=== PATIENT | male | born 1975 | race Caucasian/White ===

== ENCOUNTER 2018-12-11 17:13 | Emergency (ER) | payer OTHER ==
[2018-12-11 17:48] VITALS: BP 127/72
[2018-12-11] MEDS ORDERED: Fluorescein Sodium TOPICAL* 1 MG TEST STRIP OPHTHALMIC ONE (18:01)
[2018-12-11] MEDS ORDERED: Tetracaine 0.5% OPTH.SOL 4 ML* 1 DROP BTL LEFT EYE ONE (18:05)
--- NOTE | 2018-12-11 18:24 | UC ---
Eye Complaint HPI - HPI Summary HPI Summary: 43-year-old male complains of 2-3 day history of left eye irritation and redness. Patient is a contact lens wearer. States yesterday he removed his old pair of lenses and put in a new pair. Throughout the day today the redness and irritation worsened. He developed photophobia and tearing. Denies fever, chills, URI symptoms, injury, blurred or double vision, or purulent discharge. - History of Current Complaint Chief Complaint: UCEye Stated Complaint: LEFT EYE ISSUE Time Seen by Provider: 12/11/18 17:57 Hx Obtained From: Patient Pain Intensity: 6 - Allergies/Home Medications Allergies/Adverse Reactions: Allergies Allergy/AdvReac Type Severity Reaction Status Date / Time Penicillins Allergy family hx Verified 12/11/18 17:42 of onions Allergy Anaphylatic Uncoded 03/31/18 09:45 Shock PMH/Surg Hx/FS Hx/Imm Hx Previously Healthy: Yes - Denies significant PMH - Surgical History Surgical History: None - Family History Known Family History: Positive: Cardiac Disease - Social History Occupation: Employed Full-time Lives: With Family Alcohol Use: Weekly Substance Use Type: Marijuana Substance Use Comment - Amount & Last Used: yesterday Smoking Status (MU): Former Smoker Have You Smoked in the Last Year: No When Did the Patient Quit Smoking/Using Tobacco: age 15 yo Review of Systems All Other Systems Reviewed And Are Negative: Yes Constitutional: Negative: Fever, Chills Eyes: Positive: Drainage, Eye Redness, Photophobia. Negative: Blurred Vision, Diplopia ENT: Positive: Negative Respiratory: Positive: Negative Cardiovascular: Positive: Negative Gastrointestinal: Positive: Negative Genitourinary: Positive: Negative Musculoskeletal: Positive: Negative Neurological: Positive: Negative Is Patient Immunocompromised?: No Physical Exam - Summary Physical Exam Summary: GENERAL APPEARANCE: Well developed, well nourished, alert and cooperative, and appears to be in no acute distress. EYES: PERRL, EOM intact. Vision is grossly intact. Left conjunctival erythema with tearing. Tetracaine drops and fluorsceine instilled into the left eye and examined under magnification using a Wood's lamp. No corneal corneal defects, stain uptake, or foreign bodies noted. Upper and lower lids were everted as part of the exam. EARS: External auditory canals and tympanic membranes clear, hearing grossly intact. NOSE: No nasal discharge. THROAT: Pharynx normal. No tonsilar inflammation, swelling, exudate, or lesions. Uvula midline. Oral cavity normal. Teeth and gingiva in good general condition. NECK: Neck supple, non-tender without lymphadenopathy. CARDIAC: Normal S1 and S2. No S3, S4 or murmurs. Rhythm is regular. There is no peripheral edema, cyanosis or pallor. Extremities are warm and well perfused. Capillary refill is less than 2 seconds. Peripheral pulses intact. LUNGS: Clear to auscultation without rales, rhonchi, wheezing or diminished breath sounds. ABDOMEN: Positive bowel sounds. Soft, nondistended, nontender. No guarding or rebound. No masses or hepatosplenomegally. MUSKULOSKELETAL: ROM intact to all extremities. No joint erythema or tenderness. Normal muscular development. Normal gait. SKIN: Skin normal color, texture and turgor with no lesions or eruptions. Triage Information Reviewed: Yes Vital Signs: Initial Vital Signs Temp 99.2 F 12/11/18 17:44 Pulse 70 12/11/18 17:44 Resp 22 12/11/18 17:44 BP 127/72 12/11/18 17:44 Pulse Ox 97 12/11/18 17:44 Vital Signs Reviewed: Yes Eye Complaint Course/Dx - Course Course Of Treatment: 43-year-old male complains of 2-3 day history of left eye irritation and redness. Patient is a contact lens wearer. States yesterday he removed his old pair of lenses and put in a new pair. Throughout the day today the redness and irritation worsened. He developed photophobia and tearing. Denies fever, chills, URI symptoms, injury, blurred or double vision, or purulent discharge. Afebrile. Vital signs stable. Exam revealed conjunctival erythema with tearing of the left eye. PERRL, EOM intact. Vision is grossly intact. Tetracaine drops and fluorsceine instilled into the left eye and examined under magnification using a Wood's lamp. No corneal corneal defects, stain uptake, or foreign bodies noted. Remainder of exam was unremarkable. Will plan to treat for a left bacterial conjunctivitis although I did discuss with the patient that with his symptoms of eye pain and photophobia I cannot fully rule out the possibility of keratitis despite not finding any corneal defects. He is to start ciprofloxacin ophthalmic drops 2 drops into the left eye every 2 hours while awake for 2 days then 2 drops into the left eye every 4 hours while awake for the next 5 days. Patient was instructed not to wear contacts until treatment is completed. He is to follow-up with ophthalmology in one to 2 days especially if symptoms are not improving. Anticipatory guidance and warning symptoms were reviewed with the patient. Verbalizes understanding and agrees with plan of care. - Differential Dx/Diagnosis Differential Diagnosis/HQI/PQRI: Conjunctivitis, Corneal Abrasion, Keratitis Provider Diagnosis: Conjunctivitis, left eye Discharge - Sign-Out/Discharge Documenting (check all that apply): Patient Departure All imaging exams completed and their final reports reviewed: No Studies - Discharge Plan Condition: Stable Disposition: HOME Prescriptions: Ciprofloxacin 0.3% OPTH.SHIRLEY* [Cipro 0.3% Opth*] 2 drop LEFT EYE Q2H 7 Days #1 btl Patient Education Materials: Conjunctivitis (ED) Referrals: Loly Jimenez PA [Primary Care Provider] - Ezra Campoverde MD [Medical Doctor] - 2 Days Additional Instructions: Your eye exam showed no defects of the cornea therefore we will treat for a bacterial conjunctivitis however with your symptoms I cannot fully rule out the possibility of a more serious condition called keratitis. Start ciprofloxacin ophthalmic drops. Instilled 2 drops into the left eye every 2 hours while awake for the first 2 days and then 2 drops into the left eye every 4 hours while awake for the next 5 days. Do not wear your contacts until you have completed the treatment. Throw out the old pair and use a new pair once you have completed you treatment. To avoid reinfection or spreading infection: * Use washcloths and towels once then launder. * Do not share washcloths or towels with others. * Change your pillow case each morning until you have finished treatment. Follow up with opthalmology in 1-2 days especially if symptoms are not improving. Call for an appointment. Seek immediate medical attention in the emergency room if you develop fever greater than 100.5 F, have pain or swelling of the eye, visual disturbances, loss of vision, or any worsening of symptoms. - Billing Disposition and Condition Condition: STABLE Disposition: Home
[2018-12-11] MEDS ORDERED: Tetracaine 0.5% OPTH.SOL 4 ML* 1 DROP BTL LEFT EYE SCH (18:30)
== END 2018-12-11 18:40 | disposition home or self-care (01) ==
LOC: UCCORT 17:13
DX: H57.89 Other specified disorders of eye and adnexa (principal); H10.9 Unspecified conjunctivitis; Z88.0 Allergy status to penicillin; Z87.891 Personal history of nicotine dependence
CPT/HCPCS: 99212; A9270-GY; G0463

== ENCOUNTER 2019-07-11 10:34 | Emergency (ER) | payer SELFPAY ==
--- NOTE | 2019-07-11 10:45 | UC ---
FLU HPI - HPI Summary HPI Summary: 43 y/o male presents to the urgent care c/o nasal congestion, runny nose, headache, sore throat, body aches and fever for the past 2 days. He has taking theraflu and ibuprofen prn to alleviate symptoms. Pt thinks he has been exposed to influenza in his house since his kids are sick. Pt states pain is 6/10 body aches and VERDE. He has Hx os asthma and last night he used his inhalers for the cough. Pt denies dizziness, SOB, chest pain,abdominal pain, N/V/d, neck pain, rash. - History of Current Complaint Stated Complaint: COUGH,BODY ACHES, FEVER,FATIGUE Time Seen by Provider: 07/11/19 10:42 Hx Obtained From: Patient Onset/Duration: Gradual Onset, Lasting Days - 2 days, Still Present, Worse Since - today Severity Currently: Mild Severity Initially: Moderate Pain Intensity: 6 Pain Scale Used: 0-10 Numeric Associated Signs & Symptoms: Positive: Fever, T Max - 100.9F, Myalgia, Cough - dry, Sore Throat, Nasal Congestion, Headache. Negative: Vomiting, Diarrhea Related Hx: Possible Flu/Infectious Exposure - Risk Factors Influenza Risk Factors: Negative - Allergy/Home Medications Allergies/Adverse Reactions: Allergies Allergy/AdvReac Type Severity Reaction Status Date / Time Penicillins Allergy family hx Verified 07/11/19 10:43 of onions Allergy Anaphylatic Uncoded 07/11/19 10:43 Shock Home Medications: Home Medications Oseltamivir CAP* [Tamiflu CAP*] 75 mg PO BID #10 cap 07/11/19 [Rx] PMH/Surg Hx/FS Hx/Imm Hx Previously Healthy: Yes Respiratory History: Asthma - Surgical History Surgical History: None - Family History Known Family History: Positive: Cardiac Disease, Respiratory Disease - asthma - Social History Occupation: Employed Full-time Lives: With Family Alcohol Use: Weekly Substance Use Type: Marijuana Substance Use Comment - Amount & Last Used: yesterday Smoking Status (MU): Former Smoker Have You Smoked in the Last Year: No When Did the Patient Quit Smoking/Using Tobacco: age 15 yo Review of Systems All Other Systems Reviewed And Are Negative: Yes Constitutional: Positive: Fever, Chills, Fatigue, Other - body aches Skin: Positive: Negative Eyes: Positive: Negative ENT: Positive: Sore Throat, Nasal Discharge - clear, Sinus Congestion, Sinus Pain/Tenderness, Other - PND Respiratory: Positive: Cough - dry Cardiovascular: Positive: Negative Gastrointestinal: Positive: Negative Genitourinary: Positive: Negative Motor: Positive: Negative Neurovascular: Positive: Negative Musculoskeletal: Positive: Myalgia Neurological/Mental Status: Positive: Headache Psychological: Positive: Negative Is Patient Immunocompromised?: No Physical Exam - Summary Physical Exam Summary: VITAL SIGNS: Reviewed. GENERAL: Patient is a well developed and nourished male who is sitting comfortably in the examining table. Patient is not in any acute respiratory distress. HEAD AND FACE: No signs of trauma. No ecchymosis, hematomas or skull depressions. No sinus tenderness. EYES: PERRLA, EOMI x 2, No injected conjunctiva, no nystagmus. No photophobia. EARS: Hearing grossly intact. Ear canals and tympanic membranes are within normal limits. MOUTH: Positive pharynx with mild erythema, no exudates, No B/L tonsillar enlargement , no exudate. Uvula in midline. edematous nasal mucosa w/ clear nasal discharge, clear PND NECK: Supple, trachea is midline, Positive anterior cervical lymphadenopathy, no JVD, no carotid bruit, no c-spine tenderness, neck with full ROM. No meningeal signs, no Kernig's or brudzinskis signs. CHEST: Symmetric, no tenderness at palpation LUNGS: Clear to auscultation bilaterally. No wheezing or crackles. CVS: Regular rate and rhythm, S1 and S2 present, no murmurs or gallops appreciated. ABDOMEN: Soft, non-tender. No signs of distention. No rebound no guarding, and no masses palpated. Bowel sounds are normal. EXTREMITIES: FROM in all major joints, no edema, no cyanosis or clubbing. NEURO: Alert and oriented x 3. No acute neurological deficits. Pt follows commands. SKIN: Dry and warm Triage Information Reviewed: Yes Flu Course/Dx - Course Course Of Treatment: 43 y/o male presents to the urgent care c/o nasal congestion, runny nose, headache, sore throat, body aches and fever for the past 2 days. He has taking theraflu and ibuprofen prn to alleviate symptoms. Pt thinks he has been exposed to influenza in his house since his kids are sick. Pt states pain is 6/10 body aches and VERDE. He has Hx os asthma and last night he used his inhalers for the cough. Pt denies dizziness, SOB, chest pain,abdominal pain, N/V/d, neck pain, rash. Hx obtained. and medications reviewed.Pt febrile with URI on examination. Pt given Ibuprofen PO at the clinic to alleviate symptoms by nurse. Pt tolerated well medication and felt better. Influenza A&B ordered: result: Influenza B positive.Pt Rx Tamiflu PO to alleviate symptoms. Advised on hand washing and wearing a mask to avoid spreading. Pt advised to rest, increase fluid intake, eat well and avoid strenuous exercise. If symptoms do not improve or worsen advised to return to the urgent care or f/u with her PCP for further evaluation and treatment. Pt understood and agreed w/ plan of care. - Differential Dx/Diagnosis Differential Diagnosis/HQI/PQRI: Bronchitis, Influenza, Pneumonia, Upper Respiratory Infection Provider Diagnosis: Influenza A, Fever Discharge ED - Sign-Out/Discharge Documenting (check all that apply): Patient Departure - D/C home All imaging exams completed and their final reports reviewed: No Studies - Discharge Plan Condition: Stable Disposition: HOME Prescriptions: Oseltamivir CAP* [Tamiflu CAP*] 75 mg PO BID #10 cap Patient Education Materials: Influenza (ED) Forms: *Work Release Referrals: Loly Jimenez PA [Primary Care Provider] - 3 Days Additional Instructions: 1- Please take the full course of the antiviral to avoid resistance. Encourage hand washing and wear a mask to avoid spreading. 2-Please continue taking Ibuprofen alternating w/ Tylenol PO q6-8hrs prn as instructed after meals to alleviate fever, and sore throat. Increase fluid intake, eat well, rest and avoid strenuous exercise 3- Continue using your albuterol inhaler w/ chamber to alleviate bronchospasm or if you develop wheezing. 4-If symptoms do not improve or worsen please return to the urgent care or f/u with your PCP in 2-3 days for further evaluation and treatment. - Billing Disposition and Condition Condition: STABLE Disposition: Home
[2019-07-11 10:46] VITALS: BP 112/73
[2019-07-11 10:53] LABS: Influenza A Molecular POSITIVE (Negative)
[2019-07-11] MEDS ORDERED: Ibuprofen TAB* 400 MG PO ONE (10:56)
== END 2019-07-11 11:14 | disposition home or self-care (01) ==
LOC: UCCORT 10:34
DX: J10.1 Influenza due to other identified influenza virus with other respiratory manifestations (principal); R50.9 Fever, unspecified; J45.909 Unspecified asthma, uncomplicated; Z88.0 Allergy status to penicillin; Z91.018 Allergy to other foods; Z87.891 Personal history of nicotine dependence
CPT/HCPCS: 99212; A9270-GY; G0463

== ENCOUNTER 2019-07-17 11:26 | Emergency (ER) | payer SELFPAY ==
[2019-07-17 11:41] VITALS: BP 117/79
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
== END 2019-07-17 12:12 | disposition home or self-care (01) ==
LOC: UCCORT 11:26
DX: R04.2 Hemoptysis (principal); R91.8 Other nonspecific abnormal finding of lung field; F90.9 Attention-deficit hyperactivity disorder, unspecified type; Z88.0 Allergy status to penicillin; Z91.018 Allergy to other foods; Z87.828 Personal history of other (healed) physical injury and trauma; Z87.891 Personal history of nicotine dependence
CPT/HCPCS: 71046; 99211; G0463

== ENCOUNTER 2019-08-03 18:21 | Emergency (ER) | payer SELFPAY ==
[2019-08-03 18:37] VITALS: BP 130/80
--- NOTE | 2019-08-03 18:48 | UC ---
Epistaxis Nasal HPI - HPI Summary HPI Summary: Pt presents with c/o sudden onset of nose bleed atraumatic onset. Pt state that over the last 3 days he has had spontaneous nose bleeds that eventually resolved spontaneously. Pt states that he has a hx of nosebleed and had nostrils cauterized by Dr. Thakur. Pt's nose is not actively bleeding at time of visit. - History of Current Complaint Stated Complaint: NOSE BLEEDS X3 DAYS Time Seen by Provider: 08/03/19 18:27 Hx Obtained From: Patient Onset/Duration: Sudden Onset, Resolved Timing: Minutes Severity Initially: Moderate Severity Currently: None Pain Intensity: 0 Aggravating Factor(s): Nothing - Allergies/Home Medications Allergies/Adverse Reactions: Allergies Allergy/AdvReac Type Severity Reaction Status Date / Time Penicillins Allergy family hx Verified 08/03/19 18:38 of onions Allergy Anaphylatic Uncoded 08/03/19 18:38 Shock Home Medications: Home Medications Albuterol HFA INHALER* [Ventolin HFA Inhaler*] 1 puff INH Q4H PRN 08/03/19 [ History Confirmed 08/03/19] PMH/Surg Hx/FS Hx/Imm Hx Previously Healthy: Yes - Surgical History Surgical History: None - Family History Known Family History: Positive: Cardiac Disease, Respiratory Disease - asthma - Social History Occupation: Employed Full-time Lives: With Family Alcohol Use: Weekly Substance Use Type: Marijuana Substance Use Comment - Amount & Last Used: yesterday Smoking Status (MU): Former Smoker Have You Smoked in the Last Year: No When Did the Patient Quit Smoking/Using Tobacco: 20 yrs Review of Systems All Other Systems Reviewed And Are Negative: Yes Constitutional: Positive: Negative Skin: Positive: Negative Eyes: Positive: Negative ENT: Positive: Epistaxis Respiratory: Positive: Negative Cardiovascular: Positive: Negative Gastrointestinal: Positive: Negative Genitourinary: Positive: Negative Motor: Positive: Negative Neurovascular: Positive: Negative Musculoskeletal: Positive: Negative Neurological/Mental Status: Positive: Negative Psychological: Positive: Negative Is Patient Immunocompromised?: No Physical Exam Triage Information Reviewed: Yes Appearance: Well-Appearing Vital Signs: Initial Vital Signs Temp 99.0 F 08/03/19 18:30 Pulse 82 08/03/19 18:30 Resp 18 08/03/19 18:30 BP 130/80 08/03/19 18:30 Pulse Ox 95 08/03/19 18:30 Vital Signs Reviewed: Yes Eye Exam: Normal ENT Exam: Other - no hematoma noted in nasal passages Dental Exam: Normal Respiratory: Positive: No respiratory distress Musculoskeletal Exam: Normal Neurological Exam: Normal Psychological Exam: Normal Skin Exam: Normal Epistaxis Nasal Course/Dx - Differential Dx/Diagnosis Differential Diagnosis/HQI/PQRI: Epistaxis Provider Diagnosis: Epistaxis, recurrent Discharge ED - Sign-Out/Discharge Documenting (check all that apply): Patient Departure All imaging exams completed and their final reports reviewed: No Studies - Discharge Plan Condition: Stable Disposition: HOME Patient Education Materials: Nosebleed (ED) Referrals: Malcom Nath MD [Medical Doctor] - If Needed Loly Jimenez PA [Primary Care Provider] - If Needed - Billing Disposition and Condition Condition: STABLE Disposition: Home
== END 2019-08-03 18:58 | disposition home or self-care (01) ==
LOC: UCCORT 18:21
DX: R04.0 Epistaxis (principal); Z88.0 Allergy status to penicillin; Z91.018 Allergy to other foods; Z87.891 Personal history of nicotine dependence
CPT/HCPCS: 99211; G0463